=== PATIENT | male | born 1985 | race Caucasian/White ===

== ENCOUNTER 2021-06-01 03:49 | Emergency (ER) | payer MEDICARE ==
[~2021-06-01] VITALS: Ht 165.1 cm; Wt 65.8 kg
[~2021-06-01 03:49] MED LIST: DIAZEPAM5 MG PO; HYDROCODON-ACE1 EAC8 PO; LEVOTHYROXINE25 MCG PO; OXYCODONE HCL20 M1 PO; OXYCONTIN20 MG PO; WARFARIN SODIUM5 MG PO; [UNRECOGNIZED DRUG - REMARK]
--- OUTSIDE RECORDS SUMMARY | 2021-06-01 03:52 | XMS ---
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 Bret VISIT COUNT (12 MO.) 1 SVETLANA Diaz TOTAL 1 NOTE: Visits indicate total known visits. ED/UCC VISIT TRACKING (12 MO.) 06/01/2021 03:50 SVETLANA Mo OR TYPE: Emergency COMPLAINT: - LT EAR PROBLEM INPATIENT VISIT TRACKING (12 MO.) No inpatient visits to display in this time frame [email or web address]
== END 2021-06-01 04:35 | disposition home or self-care (01) ==
LOC: ED 03:49
DX: H61.22 Impacted cerumen, left ear (principal); Z79.01 Long term (current) use of anticoagulants
CPT/HCPCS: 69209; 99283